=== PATIENT | male | born 1970 | race Caucasian/White ===

== ENCOUNTER 2019-01-13 04:15 | Emergency (ER) | payer SELFPAY ==
[2019-01-13] MEDS ORDERED: KETOROLAC TROMETHAMINE INJ/PF 30 MG/1 ML SDV IV ONE (04:33)
[2019-01-13] MEDS ORDERED: DIPHENHYDRAMINE HCL 50 MG/ML VIAL IV ONE (04:33)
[2019-01-13] MEDS ORDERED: NORMAL SALINE 1000 ML 1,000 ML IV ONE (04:33)
[2019-01-13] MEDS ORDERED: METOCLOPRAMIDE HCL INJ/PF 10 MG/2 ML SDV IV ONE (04:33)
--- NOTE | 2019-01-13 04:36 | ER Document Report ---
ED Headache - General Chief Complaint: Headache Stated Complaint: HEADACHE Time Seen by Provider: 01/13/19 04:28 Primary Care Provider: ALYSSA SALCIDO MD [NO LOCAL MD] - Follow up as needed Notes: Patient is a 48-year-old male history of migraines presents to the emergency department for what he feels like it is a migraine headache. Patient voices he has had this headache for approximately 4 hours. States it was a slow steady onset. States it is in his forehead and bilateral temples. States it is throbbing in nature. Patient also has generalized photophobia and has vomited multiple times. Patient's denying any fevers, URI symptoms, chest pain, shortness of breath, abdominal pain, diarrhea. Patient voices he did take a Goody powder prior to arrival to the emergency room. Patient takes Wellbutrin on a daily basis, Ativan as needed, Flexeril as needed. Allergies: Hydrocodone, oxycodone, codeine. TRAVEL OUTSIDE OF THE [place] IN LAST 30 DAYS: No - Related Data Allergies/Adverse Reactions: codeine Adverse Reaction (Verified 01/13/19 05:25) hydrocodone Adverse Reaction (Verified 01/13/19 05:25) oxycodone Adverse Reaction (Verified 01/13/19 05:25) Home Medications: wellbutrin 200 mg bid. ativan prn Past Medical History - General Information source: Patient, Relative - Social History Smoking Status: Current Some Day Smoker Family History: Reviewed & Not Pertinent Patient has suicidal ideation: No Patient has homicidal ideation: No Renal/ Medical History: Reports: Hx Kidney Stones - Immunizations Hx Diphtheria, Pertussis, Tetanus Vaccination: No Review of Systems - Review of Systems Constitutional: denies: Fever EENT: See HPI Cardiovascular: No symptoms reported Respiratory: No symptoms reported Gastrointestinal: No symptoms reported Genitourinary: No symptoms reported Male Genitourinary: No symptoms reported Musculoskeletal: No symptoms reported Skin: No symptoms reported Hematologic/Lymphatic: No symptoms reported Neurological/Psychological: See HPI Physical Exam - Vital signs Vitals: Temp Pulse Resp BP Pulse Ox 97.7 F 101 H 20 138/96 H 95 01/13/19 04:19 01/13/19 04:19 01/13/19 04:19 01/13/19 04:19 01/13/19 04:19 - Notes Notes: GENERAL: Alert, interacts well. Obvious distress, holding trash can as he feels nauseated. HEAD: Normocephalic, atraumatic. EYES: Pupils equal, round, and reactive to light. Extraocular movements intact. Photophobia noted. ENT: Oral mucosa moist, tongue midline. Nares patent, no nasal septal hematoma, TM's intact. NECK: Full range of motion. Supple. Trachea midline. No nuchal rigidity noted LUNGS: Clear to auscultation bilaterally, no wheezes, rales, or rhonchi. No respiratory distress. HEART: Regular rate and rhythm. No murmur ABDOMEN: Soft, non-tender. Non-distended. Bowel sounds present in all 4 quadrants. EXTREMITIES: Moves all 4 extremities spontaneously. No edema, normal radial and dorsalis pedis pulses bilaterally. No cyanosis. 5 out of 5 strength in all 4 extremities. BACK: no cervical, thoracic, lumbar midline tenderness. No saddle anesthesia, normal distal neurovascular exam. NEUROLOGICAL: Alert and oriented x3. Normal speech. cranial nerves II through XII grossly intact PSYCH: Normal affect, normal mood. SKIN: Warm, dry, normal turgor. No rashes or lesions noted. Course - Re-evaluation Re-evalutation: 01/13/19 05:26 Upon repeat assessment patient is sleeping, easily arousable to verbal stimuli. He does sit up in bed and states he feels "so much better." Discussed close follow-up with primary care provider with close return precautions. Patient stable for discharge. - Vital Signs Vital signs: Temp Pulse Resp BP Pulse Ox 98.4 F 72 16 148/72 H 95 01/13/19 06:33 01/13/19 06:33 01/13/19 06:33 01/13/19 06:33 01/13/19 04:19 Discharge - Discharge Clinical Impression: Migraine Qualifiers: Migraine type: unspecified Status migrainosus presence: without status migrainosus Intractability: not intractable Qualified Code(s): G43.909 - Migraine, unspecified, not intractable, without status migrainosus Condition: Stable Disposition: HOME, SELF-CARE Instructions: Antinausea Medication ([facility]), Use of Diphenhydramine, Headache ([facility]), Reglan ([facility]), Toradol Injection ([facility]) Additional Instructions: As we discussed you have been seen and treated in the emergency department for your migraine headache. Please make sure you stay well-hydrated only use nausea medication as needed. Please follow-up with your primary care provider in the next 12 to 24 hours. Please return to the emergency department for any concerns. Prescriptions: Metoclopramide HCl [Reglan 10 mg Tablet] 10 mg PO Q6 PRN #10 tablet PRN Reason: Forms: Return to Work Referrals: ALYSSA SALCIDO MD [NO LOCAL MD] - Follow up as needed
[2019-01-13 06:36] VITALS: BP 148/72
== END 2019-01-13 06:33 | disposition home or self-care (01) ==
LOC: ER 04:15
DX: G43.909 Migraine, unspecified, not intractable, without status migrainosus (principal); Z79.899 Other long term (current) drug therapy; H53.149 Visual discomfort, unspecified; R11.2 Nausea with vomiting, unspecified; F17.200 Nicotine dependence, unspecified, uncomplicated; Z88.5 Allergy status to narcotic agent
CPT/HCPCS: J1200; J1885; J2765; J7030; 96361; 96374; 96375; 99283

== ENCOUNTER 2019-01-13 16:51 | Emergency (ER) | payer SELFPAY ==
[2019-01-13] MEDS ORDERED: DIPHENHYDRAMINE HCL 50 MG/ML VIAL IV ONE (17:37)
[2019-01-13] MEDS ORDERED: PROCHLORPERAZINE EDISYLATE INJ 10 MG/2 ML VIAL IV ONE (17:37)
[2019-01-13] MEDS ORDERED: DEXAMETHASONE SOD PHOS INJ 10 MG/1 ML VIAL IV ONE (17:37)
[2019-01-13] MEDS ORDERED: NORMAL SALINE 1000 ML 1,000 ML IV ONE (17:37)
--- NOTE | 2019-01-13 17:38 | ER Document Report ---
ED Medical Screen (RME) - General Chief Complaint: Headache Stated Complaint: MIGRAINE Time Seen by Provider: 01/13/19 17:33 Mode of Arrival: Ambulatory Information source: Patient Notes: Patient presents complaining of severe headache that started around 1:00 this morning. Patient was seen earlier today and was discharged with a prescription for Reglan. Patient has not been able to get the medication filled yet. Patient states that headache returned about an hour or 2 after he returned home patient complains of severe headache to the frontal part of his head. Patient complains of the lateral neck discomfort as well. Patient denies any fever or head injury. I have greeted and performed a rapid initial assessment of this patient. A comprehensive ED assessment and evaluation of the patient, analysis of test results and completion of the medical decision making process will be conducted by additional ED providers. TRAVEL OUTSIDE OF THE [place] IN LAST 30 DAYS: No - Related Data Allergies/Adverse Reactions: codeine Adverse Reaction (Verified 01/13/19 17:27) hydrocodone Adverse Reaction (Verified 01/13/19 17:27) oxycodone Adverse Reaction (Verified 01/13/19 17:27) Past Medical History - Social History Chew tobacco use (# tins/day): Yes Frequency of alcohol use: None Drug Abuse: None Renal/ Medical History: Reports: Hx Kidney Stones - Immunizations Hx Diphtheria, Pertussis, Tetanus Vaccination: No Physical Exam - Vital signs Vitals: Temp Pulse Resp BP Pulse Ox 98.8 F 118 H 20 149/89 H 95 01/13/19 17:06 01/13/19 17:06 01/13/19 17:06 01/13/19 17:06 01/13/19 17:06 - General General appearance: Alert In distress: Mild Notes: Appears uncomfortable, positive photophobia - Neurological Neuro grossly intact: Yes Erlanger Coma Scale Eye Opening: Spontaneous Erlanger Coma Scale Verbal: Oriented Erlanger Coma Scale Motor: Obeys Commands Erlanger Coma Scale Total: 15 Course - Vital Signs Vital signs: Temp Pulse Resp BP Pulse Ox 98.8 F 118 H 20 149/89 H 95 01/13/19 17:06 01/13/19 17:06 01/13/19 17:06 01/13/19 17:06 01/13/19 17:06
--- NOTE | 2019-01-13 18:29 | RADIOLOGY REPORT (SQ) ---
EXAM DESCRIPTION: CT HEAD WITHOUT COMPLETED DATE/TIME: 01/13/2019 6:22 pm REASON FOR STUDY: severe WOLF COMPARISON: None. TECHNIQUE: Axial images acquired through the brain without intravenous contrast. Images reviewed wi th bone, brain and subdural windows. Additional sagittal and coronal reconstructions were generated. Images stored on PACS. All CT scanners at this facility use dose modulation, iterative reconstruction, and/or weight based d osing when appropriate to reduce radiation dose to as low as reasonably achievable (ALARA). [facility]: Dose Right [facility]: CareDose [facility]: Dose Right [facility]: Teradose 4D [facility]: [facility]CP [employer] RADIATION DOSE: mGy. LIMITATIONS: None. FINDINGS: VENTRICLES: Normal size and contour. CEREBRUM: No masses. No hemorrhage. No midline shift. No evidence for acute infarction. Normal gra y/white matter differentiation. No areas of low density in the white matter. CEREBELLUM: No masses. No hemorrhage. No alteration of density. No evidence for acute infarction. EXTRAAXIAL SPACES: No fluid collections. No masses. ORBITS AND GLOBE: No intra- or extraconal masses. Normal contour of globe without masses. CALVARIUM: No fracture. PARANASAL SINUSES: Bilateral maxillary sinus mucous retention cyst. SOFT TISSUES: No mass or hematoma. OTHER: No other significant finding. IMPRESSION: NO ACUTE INTRACRANIAL IMAGING FINDINGS. EVIDENCE OF ACUTE STROKE: NO. COMMENT: Quality ID # [id number]: Final reports with documentation of one or more dose reduction techniques (e.g., Automated exposure control, adjustment of the mA and/or kV according to patient size, use of iterative reconstruction technique) TECHNICAL DOCUMENTATION: JOB ID: [id number] [employer]- All Rights Reserved Reading location - IP/workstation name: [email or web address]
[2019-01-13] MEDS ORDERED: KETOROLAC TROMETHAMINE INJ/PF 30 MG/1 ML SDV IV ONE (20:32)
[2019-01-13] MEDS ORDERED: DIAZEPAM INJ 10 MG/2 ML DISP.SYRIN IV ONE (20:32)
--- NOTE | 2019-01-13 20:33 | ER Document Report ---
ED Headache - General Chief Complaint: Headache Stated Complaint: MIGRAINE Time Seen by Provider: 01/13/19 17:33 Primary Care Provider: DEBBIE COLEMAN FNP-C [Primary Care Provider] - Follow up as needed Mode of Arrival: Ambulatory Notes: Patient is a 48-year-old male that comes emergency department for chief complaint of headache. He states that he woke up with a headache this morning at 1 AM, the headache became worse to the point where he had throbbing in the his "temples" and he became nauseated and vomited several times. He was seen in the emergency department, treated for the migraine, he states his headache did resolve but after he went home his headache started coming back. He did not come back as badly as before and he did not vomit but it still was throbbing and he could not sleep. He does report some pain along the sides of his neck on both sides along with pain in the forehead and temples. He denies head injury, fever/chills, focal numbness or weakness. He states he is having a lot of trouble with his back and he went to [facility] and had back injections over the past week. He also has a history of both tension headaches and migraines, he states he is to have a lot more and he has not had migraines in a while now. He does take Wellbutrin, as needed Ativan, as needed Flexeril. Medical history of kidney stones. Denies medical history otherwise. Denies any complaints otherwise. TRAVEL OUTSIDE OF THE [place] IN LAST 30 DAYS: No - Related Data Allergies/Adverse Reactions: codeine Adverse Reaction (Verified 01/13/19 17:27) hydrocodone Adverse Reaction (Verified 01/13/19 17:27) oxycodone Adverse Reaction (Verified 01/13/19 17:27) Past Medical History - General Information source: Patient - Social History Smoking Status: Current Some Day Smoker Chew tobacco use (# tins/day): Yes Frequency of alcohol use: None Drug Abuse: None Lives with: Family Family History: Reviewed & Not Pertinent Patient has suicidal ideation: No Patient has homicidal ideation: No Neurological Medical History: Reports: Hx Migraine Renal/ Medical History: Reports: Hx Kidney Stones Surgical Hx: Negative - Immunizations Immunizations up to date: Yes Hx Diphtheria, Pertussis, Tetanus Vaccination: Yes Review of Systems - Review of Systems Constitutional: No symptoms reported EENT: No symptoms reported Cardiovascular: No symptoms reported Respiratory: No symptoms reported Gastrointestinal: See HPI Genitourinary: No symptoms reported Male Genitourinary: No symptoms reported Musculoskeletal: No symptoms reported Skin: No symptoms reported Hematologic/Lymphatic: No symptoms reported Neurological/Psychological: See HPI Physical Exam - Vital signs Vitals: Temp Pulse Resp BP Pulse Ox 98.8 F 118 H 20 149/89 H 95 01/13/19 17:06 01/13/19 17:06 01/13/19 17:06 01/13/19 17:06 01/13/19 17:06 - Notes Notes: GENERAL: Alert, interacts well. No acute distress. HEAD: Normocephalic, atraumatic. EYES: Pupils equal, round, and reactive to light. Extraocular movements intact. ENT: Oral mucosa moist, tongue midline. Oropharynx unremarkable. Airway patent. Nares patent, no nasal septal hematoma, TM's intact. NECK: Full range of motion. Supple. Trachea midline. LUNGS: Clear to auscultation bilaterally, no wheezes, rales, or rhonchi. No respiratory distress. HEART: Regular rate and rhythm. No murmur ABDOMEN: Soft, non-tender. Non-distended. Bowel sounds present in all 4 quadrants. GENITOURINARY: Deferred EXTREMITIES: Moves all 4 extremities spontaneously. No edema, normal radial and dorsalis pedis pulses bilaterally. No cyanosis. BACK: Tenderness in both shoulders/trapezius muscles with bunched up muscle fibers. No cervical, thoracic, lumbar midline tenderness. No saddle anesthesia, normal distal neurovascular exam. Moves all extremities in full range of motion. NEUROLOGICAL: Alert and oriented x3. Normal speech. Cranial nerves II through XII grossly intact. PSYCH: Normal affect, normal mood. SKIN: Warm, dry, normal turgor. No rashes or lesions noted. Course - Re-evaluation Re-evalutation: I did review CT of the head from triage and this is negative. This was more than 6 hours since patient onset, however based on his evaluation and symptoms reported I have a much stronger suspicion of tension headache component and migraine with progressively worsening symptoms which resolved with treatment earlier. Patient will be treated and reevaluated. Patient has some tension in his trapezius muscles and reports tightness in his neck, did not have injury, has been dealing with a lot of back and neck tightness recently, is going to pain management for this and had injections. No neurological deficits. I did give him Toradol and diazepam in addition to the dexamethasone and Compazine that he received from triage. I reevaluated the patient, patient states he feels much improved and is ready to leave. Patient states he is concerned that he has had it might come back, patient will be given Fioricet for suspected tension component, he does have follow-up in addition to this for his back/neck. Discussed return precautions in detail. Patient states understanding and agreement with plan. - Vital Signs Vital signs: Temp Pulse Resp BP Pulse Ox 99.0 F 88 16 134/86 H 95 01/13/19 22:22 01/13/19 22:22 01/13/19 22:22 01/13/19 22:22 01/13/19 17:06 Discharge - Discharge Clinical Impression: Headache Qualifiers: Headache type: unspecified Headache chronicity pattern: acute headache Intractability: not intractable Qualified Code(s): R51 - Headache Condition: Stable Disposition: HOME, SELF-CARE Additional Instructions: Your evaluation, symptoms, and resolution with treatment are very suggestive of a migraine, but there does appear to be a tension headache component. You can take the prescribed medication if needed for headaches in the future. Continue your Flexeril, apply heat to your neck, do gentle stretches and massage of your neck. Follow-up with primary care for additional evaluation and management of migraines and tension headaches. Return if you worsen including returned or severe headache, vomiting, fever, or any other concerning or worsening symptoms. Prescriptions: Butalb/Acetaminophen/Caffeine [Fioricet (50-325-40 mg) Tablet] 1 tab PO Q4HP PRN #20 tab PRN Reason: Forms: Return to Work Referrals: DEBBIE COLEMAN, [employer] [Primary Care Provider] - Follow up as needed
[2019-01-13] MEDS ORDERED: BUTALB/ACETAMINOPHEN/CAFFEINE 1 TAB EACH PO ONE (21:26)
[2019-01-13 22:25] VITALS: BP 134/86
== END 2019-01-13 22:25 | disposition home or self-care (01) ==
LOC: ER 16:51
DX: R51 Headache (principal); R11.2 Nausea with vomiting, unspecified; M54.2 Cervicalgia; F17.200 Nicotine dependence, unspecified, uncomplicated; Z98.890 Other specified postprocedural states; Z79.899 Other long term (current) drug therapy
CPT/HCPCS: 70450; J3490; J3360; J1200; J1885; J0780; J7030; J1100; 96361; 96374; 96375; 99283

== ENCOUNTER 2019-02-19 23:45 | Emergency (ER) | payer SELFPAY ==
[2019-02-19 23:56] VITALS: BP 139/89
[2019-02-20 00:50] LABS: ABSOLUTE BASOPHILS # (AUTO) 0.1 10^3/uL (0.0-0.2); ABSOLUTE EOSINOPHILS # (AUTO) 0.3 10^3/uL (0.0-0.6); ABSOLUTE LYMPHOCYTES (AUTO) 1.7 10^3/uL (0.5-4.7); ABSOLUTE MONOCYTES (AUTO) 0.9 10^3/uL (0.1-1.4); ABSOLUTE NEUT (AUTO) 10.2 10^3/uL (1.7-8.2); BASOPHILS % (AUTO) 0.5 % (0-2); EOSINOPHILS % (AUTO) 2.3 % (0-6); HEMATOCRIT 45.5 % (37.9-51.0); HEMOGLOBIN 15.2 g/dL (13.5-17.0); LYMPHOCYTES % (AUTO) 12.8 % (13-45); MEAN CORPUSCULAR HEMOGLOBIN 29.4 pg (27.0-33.4); MEAN CORPUSCULAR HGB CONC 33.5 g/dL (32.0-36.0); MEAN CORPUSCULAR VOLUME 88 fl (80-97); MONOCYTES % (AUTO) 6.6 % (3-13); PLATELET COUNT 293 10^3/uL (150-450); RED BLOOD COUNT 5.19 10^6/uL (4.35-5.55); RED CELL DISTRIBUTION WIDTH 13.9 % (11.5-14.0); SEGMENTED NEUTROPHILS % (AUTO) 77.8 % (42-78); TOTAL CELLS COUNTED % (AUTO) 100 %; WHITE BLOOD COUNT 13.1 10^3/uL (4.0-10.5)
[2019-02-20 00:59] LABS: APPEARANCE,URINE CLOUDY; BILIRUBIN,URINE NEGATIVE (NEGATIVE); COLOR,URINE RED; GLUCOSE, URINE NEGATIVE (NEGATIVE); KETONES,URINE NEGATIVE (NEGATIVE); LEUKOCYTE ESTERASE,URINE NEGATIVE (NEGATIVE); NITRITE,URINE NEGATIVE (NEGATIVE); PROTEIN,URINE 100 mg/dL (NEGATIVE); UROBILINOGEN,URINE NEGATIVE mg/dL (<2.0)
[2019-02-20 01:01] LABS: ALBUMIN 4.3 g/dL (3.5-5.0); ALKALINE PHOSPHATASE 102 U/L (38-126); ANION GAP 8 (5-19); ASPARTATE AMINO TRANSFERASE 29 U/L (17-59); BILIRUBIN,DIRECT 0.2 mg/dL (0.0-0.4); BILIRUBIN,TOTAL 0.4 mg/dL (0.2-1.3); BLOOD UREA NITROGEN 16 mg/dL (7-20); CALCIUM 9.5 mg/dL (8.4-10.2); CARBON DIOXIDE 25 mmol/L (22-30); CHLORIDE 106 mmol/L (98-107); GLUCOSE 115 mg/dL (75-110); POTASSIUM 4.4 mmol/L (3.6-5.0); TOTAL PROTEIN 7.5 g/dL (6.3-8.2)
== END 2019-02-20 00:43 | disposition left against medical advice (07) ==
LOC: ER 23:45
DX: Z53.21 Procedure and treatment not carried out due to patient leaving prior to being seen by health care provider (principal)
CPT/HCPCS: 36415; 80053; 81001; 83690; 85025